=== PATIENT | female | born 1975 | race African-American/Black ===

== ENCOUNTER 2019-09-13 18:26 | Inpatient (IN) | payer SELFPAY ==
[2019-09-13 20:07] LABS: MPV 9.3 fL (7.6-11.3); RBC Red Blood Cell Count 3.34 M/uL (3.86-4.86)
[2019-09-13 20:25] LABS: ALT/SGPT 14 U/L (12-78); AST/SGOT 19 U/L (15-37); Albumin 3.5 g/dL (3.4-5.0); Alkaline Phosphatase 81 U/L (45-117); BUN Blood Urea Nitrogen 10 mg/dL (7-18); Bicarbonate 25 mmol/L (21-32); Bilirubin Direct 0.1 mg/dL (0-0.2); Bilirubin Total 0.4 mg/dL (0.2-1.0); Glucose Level 97 mg/dL (74-106); Magnesium 2.2 mg/dL (1.8-2.4); NT PRO-BNP 61 pg/mL (<125); Protein, Total 7.1 g/dL (6.4-8.2); Sodium Level 141 mmol/L (136-145); Troponin (Emerg Dept Use Only) < 0.02 ng/mL (0.0-0.045)
--- NOTE | 2019-09-13 20:31 | RAD REPORT ---
EXAM DESCRIPTION: RAD - Foot Right 3 View - 09/13/2019 8:12 pm CLINICAL HISTORY: Trauma, foot pain COMPARISON: None. FINDINGS: No fracture, dislocation or periosteal reaction. No acute bone or joint finding seen. Sandra ent has a hallux valgus configuration at the first MTP joint. No plantar spur. No air or foreign body in the soft tissues. IMPRESSION: Negative right foot examination for acute finding.
[2019-09-13 20:32] LABS: Protime INR 1.01
--- NOTE | 2019-09-13 20:32 | RAD REPORT ---
EXAM DESCRIPTION: RAD - Chest Single View - 09/13/2019 8:11 pm CLINICAL HISTORY: Cough, chest pain, trauma COMPARISON: None. TECHNIQUE: AP portable chest image was obtained . FINDINGS: Lungs are clear. Heart and vasculature are normal. No measurable pleural effusion and no p neumothorax. No acute bony abnormality seen. No acute aortic findings suspected. IMPRESSION: No acute cardiopulmonary process.
--- NOTE | 2019-09-13 20:32 | RAD REPORT ---
EXAM DESCRIPTION: RAD - Tib Fib Left - 09/13/2019 8:12 pm CLINICAL HISTORY: Fall, left leg pain COMPARISON: None. FINDINGS: No fracture is identified. There is no dislocation or periosteal reaction noted. No acute or suspicious bony finding. No foreign body or other soft tissue abnormality. IMPRESSION: Negative left tibia & fibula examination.
[2019-09-13 20:37] LABS: Hematocrit 17.5 % (36.0-45.0)
[2019-09-13 21:12] LABS: Anisocytosis 1+; Blood Morphology Comment NOTED (NOT SEEN); Ovalocytes 1+; Platelet Estimate ADEQ; Polychromasia 2+
[2019-09-13 21:51] LABS: Urine Blood 3+ (NEG); Urine Glucose NEGATIVE (NEG); Urine Protein NEGATIVE (NEG); Urine pH 5.5 (5.0-7.0)
[2019-09-14] MEDS ORDERED: ACETAMINOPHEN 500 MG TAB ONE (06:19)
[2019-09-14 06:28] LABS: Hematocrit 15.1 % (36.0-45.0); MPV 9.1 fL (7.6-11.3); RBC Red Blood Cell Count 2.94 M/uL (3.86-4.86)
[2019-09-14] MEDS ORDERED: ACETAMINOPHEN 325 MG TABLET ONE (07:18)
[2019-09-14] MEDS ORDERED: DIPHENHYDRAMINE 50 MG/ML VIAL ONE (07:18)
[2019-09-14] MEDS ORDERED: NA CHLORIDE 0.9% 100 ML IV ONE ×2 (07:18→10:17)
--- NOTE | 2019-09-14 09:58 | EKG ---
Test Date: 2019-09-13 Test Time: 19:49:43 Knitting Machine Fixer: JENNIFER MEASUREMENT RESULTS: Intervals: Rate: 81 CT: 160 QRSD: 86 QT: 372 QTc: 432 Elizabeth: P: 65 CT: 160 QRS: -4 T: 39 INTERPRETIVE STATEMENTS: Normal sinus rhythm Nonspecific T wave abnormality Abnormal ECG No previous ECG available for comparison Electronically Signed On 09-14-19 09:57:11 CDT by Kervin Brown
--- NOTE | 2019-09-14 10:36 | RAD REPORT ---
EXAM DESCRIPTION: CT - Head Brain Wo Cont - 09/14/2019 7:22 am CLINICAL HISTORY: The patient is 43 years old and is Female; HEADACHE TECHNIQUE: Axial computed tomography images of the head/brain without intravenous contrast. Sagitt al and coronal reformatted images were created and reviewed. This CT exam was performed using one o r more of the following dose reduction techniques: automated exposure control, adjustment of the mA and/or kV according to patient size, and/or use of iterative reconstruction technique. COMPARISON: No relevant prior studies available. FINDINGS: Brain: Unremarkable. No hemorrhage. No significant white matter disease. No edema. Ventricles: Unremarkable. No ventriculomegaly. Bones/joints: Unremarkable. No acute fracture. Soft tissues: Unremarkable. Sinuses: Unremarkable as visualized. No acute sinusitis. Mastoid air cells: Unremarkable as visualized. No mastoid effusion. IMPRESSION: No acute intracranial findings. Electronically signed by: Estiven Jane MD 09/14/2019 6:53 AM CDT Due to temporary technical issues with the PACS/Fluency reporting system, reports are being signed by the in house radiologist as a courtesy to ensure prompt reporting. The interpreting radiologist is f ully responsible for the content of the report.
[2019-09-14 12:19] LABS: RBC Red Blood Cell Count 3.54 M/uL (3.86-4.86)
[2019-09-14 12:22] LABS: Hematocrit 20.3 % (36.0-45.0)
--- NOTE | 2019-09-14 13:18 | EDPHYS ---
Physician Documentation [facility] Name: Cristel Rodriguez Age: 43 yrs Sex: Female : 1975 Arrival Date: 09/13/2019 Time: 18:27 Bed 6 Private MD: ED Physician Burt Foster HPI: 09/13 19:25 This 43 yrs old Black Female presents to ER via Ambulatory with complaints of Fall radah Injury, Abdominal Pain, Nausea/Vomiting. 19:25 Details of fall: The patient fell from a height, down approximately 5 stairs. Onset: radha The symptoms/episode began/occurred today. Associated injuries: The patient sustained right foot and left leg, decreased range of motion, painful injury. Severity of symptoms: At their worst the symptoms were mild, in the emergency department the symptoms are unchanged. The patient has not experienced similar symptoms in the past. Historical: - Allergies: 18:40 No Known Allergies; aa5 - PMHx: 18:40 Uterine Fibroids; Stomach ulcers; aa5 - PSHx: 18:40 None; aa5 - Immunization history:: Flu vaccine is not up to date. - Social history:: Smoking status: Patient uses tobacco products, cigars. - Ebola Screening: : No symptoms or risks identified at this time. - Family history:: not pertinent. ROS: 19:25 Constitutional: Negative for fever, chills, and weight loss, Eyes: Negative for injury, radha pain, redness, and discharge, ENT: Negative for injury, pain, and discharge, Neck: Negative for injury, pain, and swelling, Cardiovascular: Negative for chest pain, palpitations, and edema, Respiratory: Negative for shortness of breath, cough, wheezing, and pleuritic chest pain, Back: Negative for injury and pain, : Negative for injury, bleeding, discharge, and swelling, Skin: Negative for injury, rash, and discoloration, Neuro: Negative for headache, weakness, numbness, tingling, and seizure, Psych: Negative for depression, anxiety, suicide ideation, homicidal ideation, and hallucinations, Allergy/Immunology: Negative for hives, rash, and allergies, Endocrine: Negative for neck swelling, polydipsia, polyuria, polyphagia, and marked weight changes. 19:25 Abdomen/GI: Positive for abdominal pain, of the suprapubic area. 19:25 MS/extremity: Positive for pain, of the right foot and left leg. Exam: 19:25 Constitutional: This is a well developed, well nourished patient who is awake, alert, radha and in no acute distress. Head/Face: Normocephalic, atraumatic. ENT: Nares patent. No nasal discharge, no septal abnormalities noted. Tympanic membranes are normal and external auditory canals are clear. Oropharynx with no redness, swelling, or masses, exudates, or evidence of obstruction, uvula midline. Mucous membranes moist. Neck: Trachea midline, no thyromegaly or masses palpated, and no cervical lymphadenopathy. Supple, full range of motion without nuchal rigidity, or vertebral point tenderness. No Meningismus. Chest/axilla: Normal chest wall appearance and motion. Nontender with no deformity. No lesions are appreciated. Cardiovascular: Regular rate and rhythm with a normal S1 and S2. No gallops, murmurs, or rubs. Normal PMI, no JVD. No pulse deficits. Respiratory: Lungs have equal breath sounds bilaterally, clear to auscultation and percussion. No rales, rhonchi or wheezes noted. No increased work of breathing, no retractions or nasal flaring. Back: No spinal tenderness. No costovertebral tenderness. Full range of motion. Skin: Warm, dry with normal turgor. Normal color with no rashes, no lesions, and no evidence of cellulitis. Neuro: Awake and alert, GCS 15, oriented to person, place, time, and situation. Cranial nerves II-XII grossly intact. Motor strength 5/5 in all extremities. Sensory grossly intact. Cerebellar exam normal. Normal gait. 19:25 Eyes: Conjunctiva: pale. 19:25 Abdomen/GI: Inspection: abdomen appears normal, Bowel sounds: normal, Palpation: mild abdominal tenderness, in the suprapubic area, Liver: no appreciated palpable abnormalities, Hernia: not appreciated. 19:25 Musculoskeletal/extremity: Extremities: noted in the lateral side of right heel and medial aspect of right heel: decreased ROM, pain, ROM: intact in all extremities, full active range of motion, full passive range of motion, Circulation is intact in all extremities. Sensation intact. Compartment Syndrome exam of affected extremity: is normal. Weight bearing: able to fully bear weight, DVT Exam: negative Homans' sign noted on exam, no appreciated bluish discoloration, no erythema, no increased warmth, pain, swelling, tenderness. Vital Signs: 18:40 BP 129 / 65; Pulse 100; Resp 18; Temp 98.7(O); Pulse Ox 100% on R/A; Weight 79.38 kg aa5 (R); Height 5 ft. 6 in. (167.64 cm) (R); Pain 5/10; 20:26 BP 123 / 75; Pulse 86; Resp 17 S; Pulse Ox 95% on R/A; jd3 21:25 BP 121 / 79; Pulse 99; Resp 16 S; Pulse Ox 99% on R/A; jd3 22:38 BP 113 / 74; Pulse 78; Resp 16 S; Pulse Ox 100% on R/A; jd3 23:35 BP 115 / 75; Pulse 80; Resp 18 S; Pulse Ox 100% on R/A; jd3 09/14 01:45 BP 121 / 68; Pulse 76; Resp 17 S; Pulse Ox 100% on R/A; jd3 03:03 BP 114 / 68; Pulse 75; Resp 17 S; Pulse Ox 100% on R/A; jd3 04:06 BP 113 / 72; Pulse 74; Resp 16 S; Pulse Ox 100% on R/A; jd3 05:03 BP 99 / 57; Pulse 75; Resp 16 S; Pulse Ox 100% on R/A; jd3 06:27 BP 112 / 73; Pulse 68; Resp 18 S; Pulse Ox 100% on R/A; jd3 07:30 BP 106 / 71; Pulse 73; Resp 16 S; Pulse Ox 100% on R/A; jl7 08:30 BP 111 / 75; Pulse 88; Resp 15 S; Pulse Ox 100% on R/A; jl7 10:07 BP 104 / 66; Pulse 72; Resp 18 S; Pulse Ox 100% on R/A; jl7 10:30 BP 102 / 61; Pulse 76; Resp 16 S; Temp 98.2(TE); Pulse Ox 100% on R/A; jl7 11:30 BP 112 / 74; Pulse 79; Resp 16 S; Pulse Ox 100% on R/A; jl7 12:30 BP 107 / 70; Pulse 69; Resp 16 S; Pulse Ox 100% on R/A; jl7 13:30 BP 105 / 68; Pulse 78; Resp 16 S; Pulse Ox 100% on R/A; jl7 14:33 BP 120 / 65; Pulse 69; Resp 15 S; Pulse Ox 100% on R/A; jl7 09/13 18:40 Body Mass Index 28.25 (79.38 kg, 167.64 cm) aa5 MDM: 09/13 18:59 Patient medically screened. [facility] 19:28 Data reviewed: vital signs, nurses notes, lab test result(s), EKG, radiologic studies, radha plain films. 09/14 02:30 Transition of care: After a detail discussion of the patient's case, care is snw transferred to Jeffrey Maddox MD. 06:18 ED course: The patient is still waiting on blood to be prepared. Her only current c/o kdr is a DEWEY. She is otherwise stable. 07:12 ED course: Still awaiting blood products. kdr 09/13 19:21 Order name: Basic Metabolic Panel; Complete Time: 20:31 radha 09/13 19:21 Order name: CBC with Diff; Complete Time: 21:19 radha 09/13 19:21 Order name: LFT's; Complete Time: 20:31 radha 09/13 19:21 Order name: Magnesium; Complete Time: 20:31 radha 09/13 19:21 Order name: NT PRO-BNP; Complete Time: 20:31 radha 09/13 19:21 Order name: PT-INR; Complete Time: 20:33 [facility] 09/13 19:21 Order name: Troponin (emerg Dept Use Only); Complete Time: 20:31 [facility] 09/13 19:21 Order name: Type And Screen [facility] 09/13 20:18 Order name: Urine Dipstick--Ancillary (enter results); Complete Time: 21:53 cm6 09/13 20:18 Order name: Urine --Ancillary (enter results); Complete Time: 21:53 cm6 09/13 20:30 Order name: Packed RBC Leukored [facility] 09/13 20:38 Order name: Manual Differential; Complete Time: 21:19 [facility] 09/13 20:58 Order name: Antibody Identification [facility] 09/13 22:55 Order name: Sendout Antibody ID [facility] 09/13 19:21 Order name: XRAY Chest (1 view); Complete Time: 20:37 [facility] 09/13 19:21 Order name: EKG; Complete Time: 19:22 [facility] 09/13 19:25 Order name: Foot Right 3 View XRAY; Complete Time: 20:33 [facility] 09/13 19:25 Order name: Tib Fib Left XRAY; Complete Time: 20:37 [facility] 09/14 06:04 Order name: CBC w/o diff; Complete Time: 08:01 kdr 09/14 06:08 Order name: ABO/RH no charge; Complete Time: 08:01 [facility] 09/14 06:14 Order name: CT Head Brain wo Cont; Complete Time: 12:54 kdr 09/14 07:19 Order name: Diet Regular; Complete Time: 07:19 [facility] 09/14 11:19 Order name: CBC with Diff; Complete Time: 15:39 [facility] 09/14 13:21 Order name: Manual Differential; Complete Time: 15:39 [facility] 09/14 13:25 Order name: Transfusion Reaction [facility] 09/14 14:00 Order name: Diet Regular; Complete Time: 14:01 [facility] 09/13 19:21 Order name: Cardiac monitoring; Complete Time: 20:01 [facility] 09/13 19:21 Order name: EKG - Nurse/Tech; Complete Time: 20:01 [facility] 09/13 19:21 Order name: IV Saline Lock; Complete Time: 20:01 [facility] 09/13 19:21 Order name: Labs collected and sent; Complete Time: 20:01 [facility] 09/13 19:21 Order name: O2 Per Protocol; Complete Time: 19:22 [facility] 09/13 19:21 Order name: O2 Sat Monitoring; Complete Time: 19:22 [facility] 09/13 19:21 Order name: Urine Dipstick-Ancillary (obtain specimen); Complete Time: 20:01 [facility] 09/13 19:21 Order name: Urine Test (obtain specimen); Complete Time: 20:01 [facility] Administered Medications: 06:25 Not Given (Patient Refused): Tylenol 1000 mg PO once jd3 07:30 Drug: Tylenol 650 mg Route: PO; jl7 08:17 Follow up: Response: No adverse reaction jl7 07:30 Drug: Benadryl 12.5 mg Route: IVP; Site: right wrist; jl7 08:17 Follow up: Response: No adverse reaction jl7 14:32 Drug: DepoProvera - medroxyPROGESTERone 150 mg Route: IM; Site: right deltoid; jl7 Disposition: 09/15 08:59 Co-signature as Attending Physician, Burt Foster MD I agree with the assessment and [facility] plan of care. Disposition: 09/14/19 13:16 Hospitalization ordered by Lorie Person for Inpatient Admission. Preliminary diagnosis are Anemia, unspecified, Dysmenorrhea, unspecified, Menorrhagia. - Bed requested for Telemetry/MedSurg (Inpatient). - Status is Inpatient Admission. iw - Condition is Fair. - Problem is new. - Symptoms are unchanged. UTI on Admission? No Signatures: Dispatcher [employer] EDWI Roc Talavera MD MD cha Rittger, Kevin, MD MD kdr Celia Bhatti, TIMBER SIZER OPERATOR-C TIMBER SIZER OPERATOR-Csnw Angie Henriquez, RN RN iw Rebecca Adamson RN RN aa5 Karolyn Haley RN RN jl7 Kerry Caceres Jonathon RN jd3 Corrections: (The following items were deleted from the chart) 09/14 13:44 13:16 Hospitalization Ordered by Lorie Person MD for Inpatient Admission. Preliminary eb diagnosis is Anemia, unspecified; Dysmenorrhea, unspecified; Menorrhagia. Bed requested for Telemetry/MedSurg (Inpatient). Status is Inpatient Admission. Condition is Fair. Problem is new. Symptoms are unchanged. UTI on Admission? No. kdr 15:37 13:44 09/14/2019 13:16 Hospitalization Ordered by Lorie Person MD for Inpatient eb Admission. Preliminary diagnosis is Anemia, unspecified; Dysmenorrhea, unspecified; Menorrhagia. Bed requested for Telemetry/MedSurg (Inpatient). Status is Inpatient Admission. Condition is Fair. Problem is new. Symptoms are unchanged. UTI on Admission? No. eb 17:56 15:37 09/14/2019 13:16 Hospitalization Ordered by Lorie Person MD for Inpatient iw Admission. Preliminary diagnosis is Anemia, unspecified; Dysmenorrhea, unspecified; Menorrhagia. Bed requested for Telemetry/MedSurg (Inpatient). Status is Inpatient Admission. Condition is Fair. Problem is new. Symptoms are unchanged. UTI on Admission? No. eb
--- NOTE | 2019-09-14 13:18 | ER ---
Nurse's Notes [facility] Name: Cristel Rodriguez Age: 43 yrs Sex: Female : 1975 Arrival Date: 09/13/2019 Time: 18:27 Bed 6 Private MD: Diagnosis: Anemia, unspecified;Dysmenorrhea, unspecified;Menorrhagia Presentation: 09/13 18:37 Presenting complaint: Patient states: "every 6 months or so I need a blood transfusion aa5 so I think I need one and also I fell down a flight of stairs yesterday". Pt reports abd pain, Nausea, and vomiting. Also reports pain to left leg, right foot, back of head, buttocks, and back from fall. Transition of care: patient was not received from another setting of care. Onset of symptoms was August 2019. Risk Assessment: Do you want to hurt yourself or someone else? Patient reports no desire to harm self or others. Care prior to arrival: None. 18:37 Acuity: KRISTIN 3 aa5 18:37 Method Of Arrival: Ambulatory aa5 19:17 Initial Sepsis Screen: Does the patient meet any 2 criteria? No. Patient's initial jd3 sepsis screen is negative. Does the patient have a suspected source of infection? No. Patient's initial sepsis screen is negative. Historical: - Allergies: 18:40 No Known Allergies; aa5 - PMHx: 18:40 Uterine Fibroids; Stomach ulcers; aa5 - PSHx: 18:40 None; aa5 - Immunization history:: Flu vaccine is not up to date. - Social history:: Smoking status: Patient uses tobacco products, cigars. - Ebola Screening: : No symptoms or risks identified at this time. - Family history:: not pertinent. Screenin:17 Abuse screen: Denies threats or abuse. Nutritional screening: No deficits noted. jd3 Tuberculosis screening: No symptoms or risk factors identified. Fall Risk Ambulatory Aid- None/Bed Rest/Nurse Assist (0 pts). Gait- Normal/Bed Rest/Wheelchair (0 pts) Mental Status- Oriented to own ability (0 pts). Total Gonzales Fall Scale indicates No Risk (0-24 pts). Assessment: 19:15 General: Appears in no apparent distress. uncomfortable, Behavior is calm, cooperative, jd3 appropriate for age. Pain: Complains of pain in head Pain does not radiate. Quality of pain is described as aching. Neuro: Level of Consciousness is awake, alert, obeys commands, Oriented to person, place, time, situation, Speech is normal, Pupils are PERRLA, Reports dizziness. Cardiovascular: Heart tones S1 S2 present Capillary refill < 3 seconds Patient's skin is warm and dry. Respiratory: Airway is patent Respiratory effort is even, unlabored, Respiratory pattern is regular, symmetrical, Breath sounds are clear bilaterally. Denies cough, shortness of breath. GI: Abdomen is round non-distended, Bowel sounds present X 4 quads. Abd is soft and non tender X 4 quads. Reports nausea, Patient currently denies abdominal pain, diarrhea, vomiting. : No signs and/or symptoms were reported regarding the genitourinary system. EENT: No signs and/or symptoms were reported regarding the EENT system. Derm: Skin is intact, Skin is dry, Skin is normal, Skin temperature is warm. Musculoskeletal: Circulation, motion, and sensation intact. Range of motion: intact in all extremities. 20:26 Reassessment: Patient appears in no apparent distress at this time. No changes from jd3 previously documented assessment. Patient and/or family updated on plan of care and expected duration. Pain level reassessed. Patient is alert, oriented x 3, equal unlabored respirations, skin warm/dry/pink. 21:26 Reassessment: Patient appears in no apparent distress at this time. Patient and/or jd3 family updated on plan of care and expected duration. Pain level reassessed. Patient is alert, oriented x 3, equal unlabored respirations, skin warm/dry/pink. awaiting lab for transfusion. pt signed transfusion consent. 22:37 Reassessment: Patient appears in no apparent distress at this time. Patient and/or jd3 family updated on plan of care and expected duration. Pain level reassessed. Patient is alert, oriented x 3, equal unlabored respirations, skin warm/dry/pink. awaiting results from antibody screen for transfusion. 23:35 Reassessment: Patient appears in no apparent distress at this time. No changes from jd3 previously documented assessment. Patient and/or family updated on plan of care and expected duration. Pain level reassessed. Patient is alert, oriented x 3, equal unlabored respirations, skin warm/dry/pink. 09/14 00:30 Reassessment: Patient appears in no apparent distress at this time. No changes from jd3 previously documented assessment. Patient and/or family updated on plan of care and expected duration. Pain level reassessed. Patient is alert, oriented x 3, equal unlabored respirations, skin warm/dry/pink. 01:30 Reassessment: Patient appears in no apparent distress at this time. No changes from jd3 previously documented assessment. Patient and/or family updated on plan of care and expected duration. Pain level reassessed. Patient is alert, oriented x 3, equal unlabored respirations, skin warm/dry/pink. 03:04 Reassessment: Patient appears in no apparent distress at this time. Patient and/or jd3 family updated on plan of care and expected duration. Pain level reassessed. Patient is alert, oriented x 3, equal unlabored respirations, skin warm/dry/pink. awaiting antibody screen results for blood transfusion. pt resting in bed with eyes closed, even and unlabored respirations. no distress noted at this time. call light in reach, bed rails up X 2. 04:06 Reassessment: Patient appears in no apparent distress at this time. No changes from jd3 previously documented assessment. Patient and/or family updated on plan of care and expected duration. Pain level reassessed. Patient is alert, oriented x 3, equal unlabored respirations, skin warm/dry/pink. 05:03 Reassessment: Patient appears in no apparent distress at this time. No changes from jd3 previously documented assessment. Patient and/or family updated on plan of care and expected duration. Pain level reassessed. Patient is alert, oriented x 3, equal unlabored respirations, skin warm/dry/pink. 06:25 Reassessment: Patient appears in no apparent distress at this time. No changes from jd3 previously documented assessment. Patient and/or family updated on plan of care and expected duration. Pain level reassessed. Patient is alert, oriented x 3, equal unlabored respirations, skin warm/dry/pink. called lab for an update on blood for transfusion, was told that they have the blood, but may take awhile to prepare it for administration. 07:30 Reassessment: Patient appears in no apparent distress at this time. Patient and/or jl7 family updated on plan of care and expected duration. Pain level reassessed. Patient is alert, oriented x 3, equal unlabored respirations, skin warm/dry/pink. Pt requests to have something to eat, diet tray ordered. Pt states "When I was given 800 mg Motrin I got 4 stomach ulcers." Pt educated about Tylenol, verbalized understanding and agreed to take the medication at this time. 08:17 Reassessment: 1st unit of PRBCs started at 0800, pt denies discomfort, respirations jl7 even and unlabored, no signs of distress noted at this time. 09:00 Reassessment: Patient appears in no apparent distress at this time. Patient and/or jl7 family updated on plan of care and expected duration. Pain level reassessed. Patient is alert, oriented x 3, equal unlabored respirations, skin warm/dry/pink. 10:06 Reassessment: pt laying in bed, denies discomfort, no signs of distress noted. Second jl7 unit of blood request sent to lab at this time. 10:10 Reassessment: 1st unit of blood complete, pt denies discomfort at this time. jl7 10:30 Reassessment: Second unit of blood started at 1020. Pt reported suddenly feeling hot jl7 all over, denies SOB temp 98.2, 100% on RA, HR 75. ERD notified and ordered to pause infusion for 15 minutes and restart. 11:05 Reassessment: Transfusion restarted. jl7 11:10 Reassessment: Pt denies discomfort at this time. jl7 11:15 Reassessment: Pt reports feeling hot all over again, ERD notified and ordered to hold jl7 transfusion and repeat H\\T\\H at this time. 12:00 Reassessment: Awaiting CBC results. jl7 13:00 Reassessment: ERD at bedside discussing plan of care. jl7 13:30 Reassessment: Shanti from lab notified of transfusion reaction and states "Someone will jl7 have to walk the blood back to the lab. We'll need blood work, I'll print the labels. Do not do another blood band. Use the same one the pt currently has on.". 14:00 Reassessment: Dr. Person at bedside discussing POC. jl7 14:33 Reassessment: Depo administered IM as ordered and per packet insert instructions. jl7 Vital Signs: 09/13 18:40 BP 129 / 65; Pulse 100; Resp 18; Temp 98.7(O); Pulse Ox 100% on R/A; Weight 79.38 kg aa5 (R); Height 5 ft. 6 in. (167.64 cm) (R); Pain 10; 20:26 BP 123 / 75; Pulse 86; Resp 17 S; Pulse Ox 95% on R/A; jd3 21:25 BP 121 / 79; Pulse 99; Resp 16 S; Pulse Ox 99% on R/A; jd3 22:38 BP 113 / 74; Pulse 78; Resp 16 S; Pulse Ox 100% on R/A; jd3 23:35 BP 115 / 75; Pulse 80; Resp 18 S; Pulse Ox 100% on R/A; jd3 09/14 01:45 BP 121 / 68; Pulse 76; Resp 17 S; Pulse Ox 100% on R/A; jd3 03:03 BP 114 / 68; Pulse 75; Resp 17 S; Pulse Ox 100% on R/A; jd3 04:06 BP 113 / 72; Pulse 74; Resp 16 S; Pulse Ox 100% on R/A; jd3 05:03 BP 99 / 57; Pulse 75; Resp 16 S; Pulse Ox 100% on R/A; jd3 06:27 BP 112 / 73; Pulse 68; Resp 18 S; Pulse Ox 100% on R/A; jd3 07:30 BP 106 / 71; Pulse 73; Resp 16 S; Pulse Ox 100% on R/A; jl7 08:30 BP 111 / 75; Pulse 88; Resp 15 S; Pulse Ox 100% on R/A; jl7 10:07 BP 104 / 66; Pulse 72; Resp 18 S; Pulse Ox 100% on R/A; jl7 10:30 BP 102 / 61; Pulse 76; Resp 16 S; Temp 98.2(TE); Pulse Ox 100% on R/A; jl7 11:30 BP 112 / 74; Pulse 79; Resp 16 S; Pulse Ox 100% on R/A; jl7 12:30 BP 107 / 70; Pulse 69; Resp 16 S; Pulse Ox 100% on R/A; jl7 13:30 BP 105 / 68; Pulse 78; Resp 16 S; Pulse Ox 100% on R/A; jl7 14:33 BP 120 / 65; Pulse 69; Resp 15 S; Pulse Ox 100% on R/A; jl7 09/13 18:40 Body Mass Index 28.25 (79.38 kg, 167.64 cm) aa5 ED Course: 09/13 18:27 Patient arrived in ED. mr 18:37 Arm band placed on. aa5 18:39 Triage completed. aa5 18:49 Renny Neal, RN is Primary Nurse. bp 18:59 Roc Talavera MD is Attending Physician. radha 19:17 Patient has correct armband on for positive identification. Bed in low position. Call jd3 light in reach. Side rails up X 1. 19:32 Celia Bhatti FNP-Uriel is PHCP. snw 19:40 Inserted saline lock: 20 gauge in right wrist, using aseptic technique. Blood collected.jd3 20:11 XRAY Chest (1 view) In Process Unspecified. EDMS 20:13 Foot Right 3 View XRAY In Process Unspecified. EDMS 20:13 Tib Fib Left XRAY In Process Unspecified. EDMS 22:52 Primary Nurse role handed off by Renny Neal, CAROL jd3 22:52 Elvin Stauffer, CAROL is Primary Nurse. jd3 09/14 05:18 Attending Physician role handed off by Roc Talavera MD kdr 05:18 Burt Foster MD is Attending Physician. kdr 06:40 CT Head Brain wo Cont In Process Unspecified. EDMS 06:40 CT completed. Patient tolerated procedure well. Patient moved to CT via stretcher. Patient moved back from CT. 07:30 tobacco sweeper on. Pulse ox on. NIBP on. jl7 11:37 Repeat lab(s) drawn. by tn, sent to lab. jl7 13:10 Lorie Person MD is Hospitalizing Provider. kdr 15:20 Notified ED physician of other Belkis from outside lab reports that the pathologist states "the patient showed no evidence of hemolytic reaction and that it is safe to administer blood products should the physician choose to do so." request that this information be passed onto , admitting physician. 15:25 Notified the admitting physician of notified outside lab reports that the sg pathologist states "the patient showed no evidence of hemolytic reaction and that it is safe to administer blood products should the physician choose to do so.". Administered Medications: 06:25 Not Given (Patient Refused): Tylenol 1000 mg PO once jd3 07:30 Drug: Tylenol 650 mg Route: PO; jl7 08:17 Follow up: Response: No adverse reaction jl7 07:30 Drug: Benadryl 12.5 mg Route: IVP; Site: right wrist; jl7 08:17 Follow up: Response: No adverse reaction jl7 14:32 Drug: DepoProvera - medroxyPROGESTERone 150 mg Route: IM; Site: right deltoid; jl7 Outcome: 13:16 Decision to Hospitalize by Provider. kdr 17:56 Patient left the ED. iw Signatures: Dispatcher [employer] EDZbigniew Weaver, RN RN Roc Burgess MD MD cha Rittger, Kevin, MD MD kdr Therrien, Shelly, INSPECTOR TOOL-C INSPECTOR TOOL-Csnw JuarezCorrine mr Wiseman, Angie Klein, RN RN iw Rebecca Adamson RN RN aa5 Leal, Jahala, RN RN jl7 Elvin Stauffer RN RN jd3 Peltier, Brian, RN RN bp Corrections: (The following items were deleted from the chart) 11:21 11:15 Reassessment: pt denies discomfort at this time. jl7 jl7
[2019-09-14 13:19] LABS: Hypersegmented Neutrophils PRESENT; Platelet Estimate ADEQ
[2019-09-14 13:20] LABS: Blood Morphology Comment ND (NOT SEEN)
[2019-09-14] MEDS ORDERED: MEDROXYPROGEST ACET 150 MG/ML IM ONE (13:45)
[2019-09-14] MEDS ORDERED: FUROSEMIDE 20 MG/ 2ML VIAL IV ONE (16:15)
[2019-09-14] MEDS ORDERED: NA CHLORIDE 0.9% 250 ML IV SCH (17:00)
[2019-09-14] MEDS ORDERED: ONDANSETRON 4 MG/2 ML VIAL IV PRN (17:05)
[2019-09-14] MEDS ORDERED: ACETAMINOPHEN 500 MG TAB PO PRN (17:05)
[2019-09-14 17:13] VITALS: BMI 27.2
--- NOTE | 2019-09-14 23:09 | PREOPHP ---
Date of Admission: 09/14/2019 History Of Present Illness: Ms. Rodriguez is a 43-year-old single black female, nulligravida, who is adm itted after an episode of trauma where she fell down some steps, but on admission to the emergency ro om she was noted to be severely anemic. She gives a history of over the last 2 years of worsening pe riods with bleeding that may last for months at a time, etc. She has been diagnosed with multiple le iomyomata in the past. She has been tried on Depot Lupron briefly in the past, but otherwise has not been on any regular treatment for this. Past Medical History: Include only prior hospitalizations for transfusions. She takes this maybe he r 6th episode that she has required a transfusion. She has no other significant hospitalizations, ac cidents, or injuries. Habits: She does smoke cigars, about 1 every 3 days and does smoke marijuana. Allergies: SHE HAS NO KNOWN ALLERGIES. Family History: Noncontributory. Review of Systems: She denies recent cough, cold, fever, or chills. No recent nausea or vomiting. She denies any breas t knots or lumps. She denies any bowel or bladder issues. Physical Examination: General: Reveals pleasant black female, no apparent distress. Neck: Supple without adenopathy or thyromegaly. Lungs: Clear. Cardiac: Regular rate and rhythm without murmurs. Breasts: Not examined. Abdomen: Nontender. No upper abdominal organo or splenomegaly; however, the uterine enlargement is up to the level just inferior to the umbilicus. Pelvic: Not performed. Extremities: No cyanosis, clubbing, or edema. Impression: Menometrorrhagia secondary to uterine leiomyomata. Plan: We will treat with Depo-Provera to help further stabilize the lining because she is smoker aft er age 36, cannot use oral contraceptives, may consider mefenamic acid or other agent that might be a ble to help her bleeding if it does not slow down relatively rapidly with Depo-Provera. We have juli mmended that she consider laparoscopic hysterectomy that will be curative. CAMDEN/COY Voice ID: [id number]
[2019-09-15] MEDS ORDERED: NA CHLORIDE 0.9% 250 ML ONE (01:19)
--- NOTE | 2019-09-15 01:38 | HP ---
Date of Admission: 09/14/2019 Chief Complaint: Shortness of breath, dizziness, severe anemia. Primary Care Physician: None. Consultants: Dr. Kramer, COOPERATIVE EXTENSION AGENT. History Of Present Illness: Patient is a 43-year-old female with no significant past medical history other than uterine fibroids and previous mention by one doctor that she maybe has sickle cell diseas e. Patient comes in after a fall from stairs due to dizziness. Patient was in her usual state of he alth, has been having significant amount of menorrhagia due to her uterine fibroids, was supposed to have hysterectomy in the past; however, chose to have shots and save her womb. Patient has not had a ny children. She denies being on any blood thinners. She has received multiple transfusions in the past. Patient came into the ER yesterday after the fall. She had foot x-ray and lower extremity x-r ays, which did not show any acute fractures. Patient had fallen on the left side. Patient also had a head CT scan, which showed no acute intracranial findings. Patient was given blood transfusion. S he has multiple antibodies and therefore blood took over 6 hours to be available. She received 1 uni t without significant complications. With the 2nd unit, she had some reactions and therefore transfu titi was stopped after 2nd attempt. So far, patient received 1 unit of PRBCs. Patient's hemoglobin came up from 4.5 to 6. No known baseline. No previous labs available. We will need to request labs . Patient was therefore referred for admission due to need for continued blood transfusion and sympt omatic anemia. When seen in the ER, she was awake, alert, oriented x3, complaining of some dizziness and lightheadedness as well as headache. Past Medical History: Uterine fibroids and menorrhagia. Patient states she has previously been told she has sickle cell disease and has had required multiple blood transfusions in the past; however, s he is unsure of the diagnosis. Gastric ulcers due to NSAID use. Surgical History: None. Allergies: NO KNOWN DRUG ALLERGIES. Home Medications: None. Social History: Patient smokes cigars and will occasionally smoke marijuana for nausea. Denies any IV drug abuse or alcohol use. Patient has a fiance. Obstetric/gynecologic History: Patient has had regular periods every 28-30 days, last 3 days and lig ht; however, since 2017, has been having heavy periods related to the fibroids. Patient is G0, P0. Family History: Patient denies any premature coronary artery disease in the family. Review of Systems: Ten-point system reviewed, negative except as per HPI. Physical Examination: Vital Signs: Blood pressure 129/65, respirations 18, pulse 100, temperature 98.7, O2 100% on room ai r. General: Awake, alert, oriented x3, in some mild distress, ill-appearing female. HEENT: Normocephalic, atraumatic. PERRLA. EOMI. Dry mucous membranes. Oropharynx is clear. Conj unctivae are anicteric. Neck: Supple. No JVD. Trachea midline. CV: S1, S2. Sinus tachycardia. Peripheral pulses present. Respiratory: Moving air well bilaterally. No wheezing or stridor. No use of accessory muscles. Gastrointestinal: Abdomen is soft, nontender, nondistended. Positive bowel sounds. No guarding or rigidity. Extremities: No clubbing, cyanosis, or edema. No calf tenderness. Neuro: Cranial nerves 2 through 12 intact grossly. No focal neurological deficit. Speech is normal . Skin: No rashes. Normal skin turgor. Psych: Mood is okay. Affect is full. Insight and judgment are good. Laboratory Data: WBC 6.8, H and H 4.5 and 17.5, platelets 135. Repeat hemoglobin is 6 and 20.3 afte r 1 unit of PRBCs. Sodium 141, potassium 4, chloride 110, CO2 25, BUN 10, creatinine 0.79, glucose 9 7, calcium 8.9, magnesium 2.2. Troponin less than 0.02. UA is negative. Urine test is al so negative. Imaging Studies: Left tibia-fibula x-ray is negative, personally reviewed. Right foot 3-view shows no acute finding. CT scan of the brain shows no acute intracranial findings, personally reviewed. C hest x-ray: No acute cardiopulmonary process. Assessment: 43-year-old female with: 1.Acute blood loss anemia due to menorrhagia. Patient has been transfused 1 unit PRBCs, 2 more unit s have been ordered. Patient has multiple antibodies. Blood will need to come from [place]. Monito r H and H and continue to provide symptomatic treatment. 2.Status post fall due to dizziness, improved. No further falls. We will continue to monitor. 3.Dizziness secondary to anemia, improved slightly after transfusion. Patient recommended to be cau tious while getting up and did not get up without assistance and call the nursing staff. 4.Menorrhagia secondary to uterine fibroids. Patient had declined hysterectomy in the past, is open for hysterectomy at this time. COOPERATIVE EXTENSION AGENT has been consulted, Dr. Kramer. 5.Deep vein thrombosis prophylaxis with SCDs. 6.Possibility of sickle cell disease. We will send out peripheral blood smear. Plan: Admit patient to Med-Surg, place as inpatient, length of stay greater than 2 midnights. /COY Voice ID: [id number]
[2019-09-15 07:53] LABS: Absolute Lymphocytes (CBC) 1.5 K/uL (0.7-4.9); Basophils % 1.4 % (0-1.3); Hematocrit 23.7 % (36.0-45.0); Lymphocytes % 28.4 % (15.3-44.8); MPV 8.8 fL (7.6-11.3)
[2019-09-15 08:00] LABS: BUN Blood Urea Nitrogen 8 mg/dL (7-18); Bicarbonate 28 mmol/L (21-32); Glucose Level 97 mg/dL (74-106); Potassium 3.7 mmol/L (3.5-5.1); Sodium Level 140 mmol/L (136-145)
[2019-09-15 11:57] VITALS: O2SAT 99
[2019-09-15 12:52] LABS: Hematocrit 27.5 % (36.0-45.0)
[2019-09-15 12:53] VITALS: BP 104/57; TEMP 98
--- NOTE | 2019-09-16 03:07 | DS ---
Date of Discharge: 09/15/2019 Consultants: Fidencio Kramer M.D. with [facility]. Discharge Diagnoses: 1.Acute blood loss anemia secondary to menometrorrhagia. 2.Status post fall secondary to dizziness. 3.Dizziness secondary to anemia, improved. 4.Menometrorrhagia secondary to uterine leiomyomata. Procedures: None. Hospital Course: Patient is a 43-year-old female with past medical history of anemia and uterine fib roids, who has been having menorrhagia. There were some doubts whether she had sickle cell disease, however, no sickle cells were found on her blood smear and this diagnosis would have been caught sarina ier on in her life. Her father does not have sickle cell on his side of the family. Mother does hav e an uncle with sickle cell disease. Regardless, the patient came in due to fall from stairs, due to dizziness. She was found to have a hemoglobin of 4.5. She was given 1 unit of PRBCs, which improve d her hemoglobin to 6, however, she did have a reaction to the second unit, became flushed, did not h ave any fevers or seizures or any other reactions. Patient does have multiple antibodies and blood h ad to be brought in from [place]. Patient had acute transfusion reaction workup, clerical check was done and no acute reaction was found. Therefore, 2 more units of blood were ordered and the patient did well after the transfusion, did not have any reactions. Patient was seen by Dr. Kramer with [facility], who recommended outpatient hysterectomy. Patient unfortunately is not a candidate for oral co ntraceptives due to age over 35 and being a smoker. Patient understands that her options are either to have hysterectomy to get rid of the fibroids or to have fibroid treated, which has been done in past, however failed, or to continue to require multiple blood transfusions, which can lead to nelson ral complications including development of antibodies, which she already has along with transfusion r eactions including fever, blood reactions, and not limited to transfusion associated lung injury. patient voiced understanding. She states that her fiance has 6 children. She understands that she would be high risk , has somewhat accepted, then she may need to have hysterectomy as she d oes not have any children. Patient's hemoglobin was stable after transfusion. Her dizziness resolve d. She was able to ambulate without difficulty. She was tolerating her diet. Her trauma studies in cluding leg x-ray, foot x-ray, and head CT were negative. She did not have any residual pain. She w as then cleared for discharge, sent home in a stable condition. Activity: As tolerated. Medications: As per medication reconciliation list. Followup: Follow up with Dr. Kramer, [facility] in 2 weeks. Call his office with any recurrence of cayden hauser. Return to ER for worsening condition. Establish care with primary care physician. [facility] ient encouraged to have a hemoglobin electrophoresis study done 4 months after last blood transfusion to completely rule out sickle cell disease. However, this is doubtful. Diet: Regular. Physical Examination: General: Awake, alert, and oriented x3. No acute distress. CV: S1, S2. No murmurs. Respiratory: Moving air well bilaterally. Abdomen: Abdomen is soft, nontender, nondistended. Positive bowel sounds. Extremities: No clubbing, cyanosis, or edema. Neurologic: Nonfocal. Total time spent discharging the patient was 34 minutes. /COY Voice ID: [id number] Report ID: [id number]
== END 2019-09-15 14:30 | disposition home or self-care (01) | DRG 812 ==
LOC: ER 18:26 → ERHOLD 09-14 13:52 → 2ND 09-14 16:37 → 3RD-ICU 09-15 01:14 → 2ND 09-15 05:25
PROVIDERS: ADMIT Family Medicine; ATTEND Family Medicine
PROC: 30233N1 Transfusion of Nonautologous Red Blood Cells into Peripheral Vein, Percutaneous Approach (ICD-10-PCS; principal; 2019-09-14)
DX: D62 Acute posthemorrhagic anemia (principal); D25.9 Leiomyoma of uterus, unspecified; R42 Dizziness and giddiness; N92.1 Excessive and frequent menstruation with irregular cycle; F17.210 Nicotine dependence, cigarettes, uncomplicated
CPT/HCPCS: 36415; 36430; 70450; 71045; 80048; 80076; 81003; 81025; 83735; 83880; 84484; 85014; 85018; 85025; 85027; 85610; 86850; 86870; 86900; 86901; 86922; 93005; 94760; 96372; 96374; 99285; J1050; J1200; J1940; J7030; P9016